=== PATIENT | female | born 1980 | race Caucasian/White ===

== ENCOUNTER 2016-11-04 15:27 | Emergency (ER) | payer BC ==
[~2016-11-04] VITALS: Ht 157.5 cm; Wt 49.5 kg
[2016-11-04 16:33] VITALS: Ht 157.5 cm; Wt 49.5 kg
[2016-11-04] MEDS ORDERED: LORAZEPAM 1 MG TAB PO ONE (20:00)
--- NOTE | 2016-11-04 20:05 | ERD ---
ER Documentation Chief Complaint Date/Time DATE: 11/04/16 TIME: 19:58 Chief Complaint ANXIERTY ATTACK ATTRIBUTES IT TO A UTI ATB, GIVEN ATIVAN DID NOT FILL HPI The patient is a 36-year-old female here with her mom for a feeling of anxiety, worry, and sadness since taking Macrobid beginning on for urinary tract infection. She also felt some nausea, diarrhea, and shoulder pain, which have now resolved. She denies difficulty breathing, shortness of breath, chest pain , palpitations, headache, or any other symptoms or concerns at this time. She was seen by her primary care nurse practitioner on 10/30/16 for these symptoms, and reports that she got a complete checkup including a Holter monitor, blood tests, thyroid tests. She reports that all of these tests were negative, and that her nurse practitioner gave her a prescription for Ativan, which she has yet to fill. She has been nervous to take the Ativan because she does not know how it will affect her. She denies SI, HI. She does not feel as though she is a danger to herself or others. She denies smoking, alcohol use, or drug use. She denies any similar episodes in the past. She denies any mental health history. She has a spouse at home, for [id number]-old daughter, and her mother. ROS All systems reviewed and are negative except as per history of present illness. Allergies Allergies: Coded Allergies: No Known Allergy (Unverified , 11/04/16) PMhx/Soc Medical and Surgical Hx: pt denies Medical Hx, pt denies Surgical Hx Hx Alcohol Use: No Hx Substance Use: No Hx Tobacco Use: No Physical Exam Vitals Vital Signs Date Time Temp Pulse Resp B/P Pulse Ox O2 Delivery O2 Flow Rate FiO2 11/04/16 23:20 98.3 60 18 120/80 98 Room Air 11/04/16 16:33 99.4 111 18 129/91 98 Physical Exam Const: Tearful, nontoxic appearing, pleasant and interactive with examiner Vital signs: Reviewed by me, afebrile, tachycardia on intake with heart rate 111 , recheck heart rate 90 bpm. Head: Atraumatic Eyes: Normal Conjunctiva. No clear purulent drainage. EOMI. PERRLA. ENT: Normal External Ears, Nose and Mouth. Neck: Full range of motion..~ No meningismus. Resp: Clear to auscultation bilaterally. No adventitious breath sounds. No tachypnea. Cardio: Regular rate and rhythm, no murmurs, no rubs, no gallops. Abd: Soft, non tender, non distended. Normal bowel sounds in all quadrants. No guarding. Skin: No petechiae or rashes Back: No midline or flank tenderness Ext: No cyanosis, or edema Neur: Awake and alert Psych: Normal Mood and Affect Results 24 hrs Current Medications Medications (Trade) Dose Ordered Sig/Davie Route PRN Reason Start Time Stop Time Status Last Admin Dose Admin Lorazepam (Ativan) 1 mg ONCE ONCE PO 11/04/16 20:00 11/04/16 20:01 DC 11/04/16 20:05 Procedures/MDM Nursing Notes Reviewed Previous Medical Records requested via [employer]. EMERGENCY DEPARTMENT COURSE / MEDICAL DECISION MAKING: The patient comes to the ED secondary to anxiety, sadness, and worry for approximately 12 days. Differential diagnosis upon initial evaluation includes but is not limited to: anxiety, depression, anxiety attack The case was discussed with supervising physician Dr. Wu. The patient was treated with Ativan 1 mg p.o. with relief. Twelve-lead EKG as read by Dr. Wu: Normal sinus rhythm, 79 bpm. Normal EKG. Final impression: 1. Anxiety attack On reassessment, the patient stated that she feels much better. She continues to deny SI/HI. She continues to deny being a danger to herself or others. She has a spouse that lives at home, , and her mother who is with her today. She has plenty of family support, and regular primary care follow-up. I advised her to please follow-up with her primary care provider tomorrow, and to also secure prompt follow-up with a psychiatrist for further evaluation. The patient verbalized understanding and agreed. Her repeat physical exam was benign. Her tachycardia resolved. She continued to deny any difficulty breathing, chest pain, headache, or any other symptoms. Given this, I believe that the patient is an appropriate candidate for outpatient management and follow-up at this time. I instructed her to please fill the prescription for Ativan that was given to her by her primary care nurse practitioner. She verbalized understanding and agreed to do so. Based on patient's history of present illness and physical examination the decision was made to discharge. The patient was re-evaluated after ED treatment and stabilizing measures, and symptoms have improved. There is no evidence of life threatening injuries or illnesses at this time. On re-examination, patient resting in no distress, stable vital signs, reports feeling better and safe for discharge with outpatient follow up with PMD in 1-2 days. Patient given return precautions. Patient verbalized understanding and agreed to return precautions. All of her questions and concerns were addressed prior to discharge. She agrees with the plan of care. Because the patient was seen for anxiety previously and has a prescription for Ativan, I will not be prescribing her Ativan. The patient was instructed to please go to the pharmacy and fill her prescription for Ativan. ZAHRAA DAILY NP Nov 04, 2016 20:04
[2016-11-04 23:20] VITALS: BP 120/80; PULSE 60; RESP 18; TEMP 98.3
== END 2016-11-04 23:23 | disposition home or self-care (01) ==
LOC: FTE 15:27
DX: F41.9 Anxiety disorder, unspecified (principal)
CPT/HCPCS: 93005